=== PATIENT | female | born 1980 | race Caucasian/White ===

== ENCOUNTER 2018-05-11 08:02 | Observation (INO) | payer BC ==
[2018-05-11] MEDS ORDERED: FENTANYL CITR 100 MCG/2 ML ONE (08:25)
[2018-05-11] MEDS ORDERED: ONDANSETRON 4 MG/2 ML VIAL ONE (08:26)
[2018-05-11] MEDS ORDERED: KETOROLAC 30 MG/ML INJ ONE (08:26)
[2018-05-11 08:33] LABS: Absolute Lymphocytes (CBC) 1.4 K/uL (0.7-4.9); Absolute Monocytes 0.8 K/uL (0.1-1.3); Absolute Neutrophil 8.3 K/uL (1.8-8.0); Basophils % 0.5 % (0-1.3); Eosinophils % 1.1 % (0-4.4); Hematocrit 41.1 % (36.0-45.0); Lymphocytes % 13.4 % (15.3-44.8); MPV 7.9 fL (7.6-11.3); Monocytes % 7.5 % (3.3-12.3); RBC Red Blood Cell Count 4.62 M/uL (3.86-4.86)
--- NOTE | 2018-05-11 09:35 | RAD REPORT ---
EXAM DESCRIPTION: CT - Stone Protocol - 05/11/2018 9:19 am CLINICAL HISTORY: Abdominal pain, back pain, recent UTI diagnosis COMPARISON: None. TECHNIQUE: Axial 5 mm thick images were obtained without oral or IV contrast. The [id number] span s the entirety of the system including uppermost abdomen and lung bases. All CT scans are performed using dose optimization technique as appropriate and may include automated exposure control or mA/KV adjustment according to patient size. FINDINGS: Minimal dilatation of the right collecting system is noted. However, there is wall thicken ing and stranding along the course of the right ureter. Right kidney appears edematous relative to th e left. There is a 3 centimeter round low-density mass upper pole right kidney believed to be an inci dental cyst. No obstructing or nonobstructing calculi. No suspicious renal masses. Isodense masses an d pyelonephritis are not excluded on a stone protocol CT scan. Urinary bladder is contracted limiting assessment. No significant adrenal finding. No acute uterine finding seen on noncontrast imaging. Fa llopian tube occlusive device in place. No suspicious ovarian finding. Imaged portions of the liver, spleen and pancreas show no suspicious findings on non-contrast imaging . No gallbladder or biliary tree abnormality identified. No suspicious bowel findings. No hernia, mass or bulky lymphadenopathy noted. No free air, free fluid or inflammatory stranding. No significant bony abnormality. IMPRESSION: Mild dilatation of the right collecting system with wall thickening and stranding along the course of the ureter. Right kidney appears edematous. Right-sided pyelonephritis and ureteritis most likely. Cystitis of the bladder cannot be accurately a ssessed given the contracted state. No uterine or ovarian suspicious finding. Tubal occlusive device in place. 3 centimeter cyst upper pole right kidney identified. Abscess or aggressive mass not suspected. Isodense masses and pyelonephritis are not excluded on stone protocol technique.
[2018-05-11 09:37] LABS: Albumin 4.3 g/dL (3.4-5.0); Bilirubin Direct 0.3 mg/dL (0-0.2); Bilirubin Total 0.9 mg/dL (0.2-1.0); Potassium 3.9 mmol/L (3.5-5.1); Protein, Total 8.6 g/dL (6.4-8.2)
[2018-05-11] MEDS ORDERED: CEFTRIAXONE/SWI 1gm 1 GM/10 ML SYR ONE (10:06)
--- NOTE | 2018-05-11 10:39 | ER ---
Nurse's Notes [facility] Name: Marysol Mccurdy Age: 37 yrs Sex: Female : 1980 Arrival Date: 05/11/2018 Time: 08:03 Bed 20 Private MD: Diagnosis: Acute tubulo-interstitial nephritis;Ureteritis Presentation: 05/11 08:11 Presenting complaint: Patient states: I was diagnosed with a UTI Tuesday and started on tw2 bactrim but my lower right side of my back hurts and it goes through my stomach. Transition of care: patient was not received from another setting of care. Onset of symptoms was May 11, 2018. Risk Assessment: Do you want to hurt yourself or someone else? Patient reports no desire to harm self or others. Initial Sepsis Screen: Does the patient meet any 2 criteria? HR > 90 bpm. No. Patient's initial sepsis screen is negative. Does the patient have a suspected source of infection? No. Patient's initial sepsis screen is negative. Care prior to arrival: None. 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 - Social history:: Smoking status: Patient/guardian denies using tobacco. - Ebola Screening: : Patient denies travel to an Ebola-affected area in the 21 days before illness onset. Screenin:39 Abuse screen: Denies threats or abuse. Nutritional screening: No deficits noted. tw2 Tuberculosis screening: No symptoms or risk factors identified. Fall Risk None identified. Assessment: 08:15 General: Appears uncomfortable, slender, well groomed, Behavior is calm, cooperative, tw2 appropriate for age. Pain: Complains of pain in anterior aspect of right lateral abdomen and posterior aspect of right lateral abdomen and right flank and right mid back. Neuro: Level of Consciousness is awake, alert, obeys commands, Oriented to person, place, time, situation. Cardiovascular: Denies chest pain, shortness of breath, Heart tones S1 S2 Patient's skin is warm and dry. Respiratory: Airway is patent Respiratory effort is even, unlabored, Respiratory pattern is regular, symmetrical, Breath sounds are clear bilaterally. GI: Abdomen is flat, Bowel sounds present X 4 quads. Abdomen is tender to palpation in right lower quadrant Reports lower abdominal pain, upper abdominal pain, nausea, recently diagnosed with UTI and on Bactrim, pt also reports recently taking AZO OTC Patient currently denies constipation, diarrhea. : Reports urinary frequency, recently diagnosed uti. EENT: No signs and/or symptoms were reported regarding the EENT system. Derm: No signs and/or symptoms reported regarding the dermatologic system. Musculoskeletal: Circulation, motion, and sensation intact. Range of motion: intact in all extremities. 09:07 Reassessment: Patient appears in no apparent distress at this time. Patient and/or tw2 family updated on plan of care and expected duration. Pain level reassessed. Patient is alert, oriented x 3, equal unlabored respirations, skin warm/dry/pink. Patient states feeling better. Patient states symptoms have improved. 10:04 General: Appears in no apparent distress. comfortable, Behavior is calm, cooperative, aj appropriate for age. Pain: Complains of pain in right mid back. Neuro: Level of Consciousness is awake, alert, obeys commands, Oriented to person, place, time, situation, Appropriate for age. Respiratory: Airway is patent Respiratory effort is even, unlabored, Respiratory pattern is regular, symmetrical. GI: Abdomen is flat, non-distended. : Reports pain in right in lower back. Derm: Skin is intact, is healthy with good turgor, Skin is pink, warm \T\ dry. normal. Vital Signs: 08:12 BP 129 / 95; Pulse 107; Resp 19; Temp 98.2(O); Pulse Ox 100% on R/A; Pain 10/10; tw2 09:05 BP 103 / 79; Pulse 83; Resp 17; Pulse Ox 97% on R/A; Pain 7/10; tw2 09:55 Weight 61.23 kg; Height 5 ft. 1 in. (154.94 cm); aj 10:02 BP 105 / 72; Pulse 86; Resp 18; Pulse Ox 99% on R/A; aj 11:50 BP 116 / 70; Pulse 76; Resp 18; Pulse Ox 99% on R/A; aj 09:55 Body Mass Index 25.51 (61.23 kg, 154.94 cm) ED Course: 08:03 Patient arrived in ED. rg4 08:06 Giacomo Garvey PA is PHCP. jr8 08:06 Billy Aragon MD is Attending Physician. jr8 08:10 Arm band placed on. tw2 08:11 Nayely De León RN is Primary Nurse. tw2 08:12 Triage completed. tw2 08:12 Bed in low position. Call light in reach. Pulse ox on. NIBP on. Warm blanket given. tw2 08:18 Radiology exam delayed due to test not completed at this time. sj 08:20 Attending Physician role handed off by Billy Aragon MD jr8 08:20 Gui Almonte MD is Attending Physician. jr8 08:20 Inserted saline lock: 22 gauge in right antecubital area, using aseptic technique. tw2 Blood collected. 08:52 Radiology exam delayed due to test not completed at this time. sj 09:[address] sj 09:17 CT completed. Patient tolerated procedure well. Patient moved back from CT. vr 09:21 CT Stone Protocol In Process Unspecified. EDMS 09:55 Report given to GALLO Gregg. tw2 10:04 Marysol Guajardo RN is Primary Nurse. aj 10:37 Uli Heart MD is Hospitalizing Provider. jr8 11:56 Report given to Zhou HOLDER. aj 11:56 No provider procedures requiring assistance completed. Patient admitted, IV remains in aj place. intact. Administered Medications: 08:22 Drug: Zofran 4 mg Route: IVP; Site: right antecubital; tw2 10:01 Follow up: Response: No adverse reaction tw2 08:25 Drug: TORadol 30 mg Route: IVP; Site: right antecubital; tw2 10:01 Follow up: Response: No adverse reaction tw2 08:30 Drug: fentaNYL (PF) 50 mcg Route: IVP; Site: right antecubital; tw2 09:00 Follow up: Response: No adverse reaction; Pain is decreased tw2 09:40 Drug: fentaNYL (PF) 50 mcg Route: IVP; Site: right antecubital; tw2 10:01 Follow up: Response: No adverse reaction; Pain is decreased tw2 09:59 Drug: Rocephin 1 grams Route: IV; Rate: calculated rate; Site: right antecubital; aj 10:02 Follow up: Response: No adverse reaction; IV Status: Completed infusion; IV Intake: 10mlaj 12:01 Drug: NS 0.9% 1000 ml Route: IV; Rate: 125 ml/hr; Site: right antecubital; aj 12:02 Follow up: IV Status: Infusion continued upon admission aj Intake: 10:02 IV: 10ml; Total: 10ml. aj Outcome: 10:38 Decision to Hospitalize by Provider. eric 11:56 Admitted to Med/surg accompanied by tech, via wheelchair, room 214, with chart. aj 11:56 Condition: good 11:56 Instructed on the need for admit. 12:09 Patient left the ED. aj Signatures: Dispatcher [employer] EDMarysol Ward, RN RN my Burnett, Crissy Baron Josh, PA PA jr8 Wise, Tara, RN RN tw2 Flora Velez rg4 Corrections: (The following items were deleted from the chart) 10:05 10:02 Reassessment: Patient appears in no apparent distress at this time. No changes aj from previously documented assessment. Patient and/or family updated on plan of care and expected duration. Pain level reassessed. Patient is alert, oriented x 3, equal unlabored respirations, skin warm/dry/pink. aj
--- NOTE | 2018-05-11 10:40 | EDPHYS ---
Physician Documentation [facility] Name: Marysol Mccurdy Age: 37 yrs Sex: Female : 1980 Arrival Date: 05/11/2018 Time: 08:03 Bed 20 Private MD: ED Physician Gui Almonte HPI: 05/11 08:13 This 37 yrs old Female presents to ER via Ambulatory with complaints of Back jr8 Pain. 08:13 The symptoms are located in the right mid back. Onset: The symptoms/episode jr8 began/occurred acutely, 3 day(s) ago. The pain radiates. Associated signs and symptoms: The patient has no apparent associated signs or symptoms. Modifying factors: The patient symptoms are alleviated by nothing, the patient symptoms are aggravated by movement. Severity of symptoms: At their worst the symptoms were moderate, in the emergency department the symptoms are unchanged. The patient has not experienced similar symptoms in the past. The patient has been recently seen by a physician:. Patient seen by PCP on Tuesday for back pain on right side. Denies trauma or strain to back that she can think of. Urine was ran at that time and showed to have blood and WBC in urine. Was put on Bactrim. Came to ED today for worsening of pain . 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 - Social history:: Smoking status: Patient/guardian denies using tobacco. - Ebola Screening: : Patient denies travel to an Ebola-affected area in the 21 days before illness onset. ROS: 08:13 Eyes: Negative for injury, pain, redness, and discharge, ENT: Negative for injury, jr8 pain, and discharge, Neck: Negative for injury, pain, and swelling, Cardiovascular: Negative for chest pain, palpitations, and edema, Respiratory: Negative for shortness of breath, cough, wheezing, and pleuritic chest pain, Abdomen/GI: Negative for abdominal pain, nausea, vomiting, diarrhea, and constipation, MS/Extremity: Negative for injury and deformity, Skin: Negative for injury, rash, and discoloration, Neuro: Negative for headache, weakness, numbness, tingling, and seizure. 08:13 Back: Positive for pain at rest, pain with movement, flank pain, of the right flank and right mid back. Exam: 08:13 Eyes: Pupils equal round and reactive to light, extra-ocular motions intact. Lids and jr8 lashes normal. Conjunctiva and sclera are non-icteric and not injected. Cornea within normal limits. Periorbital areas with no swelling, redness, or edema. ENT: Nares patent. No nasal discharge, no septal abnormalities noted. Tympanic membranes are normal and external auditory canals are clear. Oropharynx with no redness, swelling, or masses, exudates, or evidence of obstruction, uvula midline. Mucous membranes moist. Neck: Trachea midline, no thyromegaly or masses palpated, and no cervical lymphadenopathy. Supple, full range of motion without nuchal rigidity, or vertebral point tenderness. No Meningismus. Cardiovascular: Regular rate and rhythm with a normal S1 and S2. No gallops, murmurs, or rubs. Normal PMI, no JVD. No pulse deficits. Respiratory: Lungs have equal breath sounds bilaterally, clear to auscultation and percussion. No rales, rhonchi or wheezes noted. No increased work of breathing, no retractions or nasal flaring. Skin: Warm, dry with normal turgor. Normal color with no rashes, no lesions, and no evidence of cellulitis. MS/ Extremity: Pulses equal, no cyanosis. Neurovascular intact. Full, normal range of motion. Neuro: Awake and alert, GCS 15, oriented to person, place, time, and situation. Cranial nerves II-XII grossly intact. Motor strength 5/5 in all extremities. Sensory grossly intact. Cerebellar exam normal. Normal gait. 08:13 Abdomen/GI: Inspection: abdomen appears normal, Bowel sounds: active, all quadrants, Palpation: soft, in all quadrants, mild abdominal tenderness, in the posterior aspect of right lateral abdomen and anterior aspect of right lateral abdomen, mass, is not appreciated, rebound tenderness, is not appreciated, voluntary guarding, is not appreciated, involuntary guarding, is not appreciated, no appreciated organomegaly, Indicators: McBurney's point is not tender, Parks's sign is negative, Rovsing's sign is negative, Liver: tenderness, is not appreciated. 08:13 Back: pain, that is moderate, of the right flank and right mid back, ROM is normal, normal spinal alignment noted, CVA tenderness, that is moderate, is noted on the right, muscle spasm, is not present. Vital Signs: 08:12 BP 129 / 95; Pulse 107; Resp 19; Temp 98.2(O); Pulse Ox 100% on R/A; Pain 10/10; tw2 09:05 BP 103 / 79; Pulse 83; Resp 17; Pulse Ox 97% on R/A; Pain 7/10; tw2 09:55 Weight 61.23 kg; Height 5 ft. 1 in. (154.94 cm); aj 10:02 BP 105 / 72; Pulse 86; Resp 18; Pulse Ox 99% on R/A; aj 11:50 BP 116 / 70; Pulse 76; Resp 18; Pulse Ox 99% on R/A; aj 09:55 Body Mass Index 25.51 (61.23 kg, 154.94 cm) aj MDM: 08:06 Patient medically screened. jr8 10:34 Data reviewed: vital signs, nurses notes, lab test result(s), radiologic studies, CT jr8 scan. Data interpreted: Pulse oximetry: on room air is 99 %. Interpretation: normal. Counseling: I had a detailed discussion with the patient and/or guardian regarding: the historical points, exam findings, and any diagnostic results supporting the discharge/admit diagnosis, lab results, radiology results, the need for further work-up and treatment in the hospital. 05/11 08:12 Order name: Basic Metabolic Panel; Complete Time: 09:48 05/11 08:12 Order name: CBC with Diff; Complete Time: 08:39 05/11 08:12 Order name: Creatinine for Radiology; Complete Time: 09:13 05/11 08:12 Order name: Hepatic Function; Complete Time: :48 05/11 08:12 Order name: Lipase; Complete Time: 48 05/11 08:40 Order name: Urine Dipstick--Ancillary (enter results); Complete Time: 11:36 05/11 08:12 Order name: CT Stone Protocol; Complete Time: 09:49 05/11 08:40 Order name: Urine --Ancillary (enter results); Complete Time: 11:36 eb 05/11 10:35 Order name: Urine Culture [facility] 05/11 08:12 Order name: IV Saline Lock; Complete Time: 08:[address] [facility] 05/11 08:12 Order name: Labs collected and sent; Complete Time: 08:41 05/11 08:12 Order name: Urine Test (obtain specimen); Complete Time: 08:[address] [facility] 05/11 08:12 Order name: Urine Dipstick-Ancillary (obtain specimen); Complete Time: 08:[address] [facility] Administered Medications: 08:22 Drug: Zofran 4 mg Route: IVP; Site: right antecubital; tw2 10:01 Follow up: Response: No adverse reaction tw2 08:25 Drug: TORadol 30 mg Route: IVP; Site: right antecubital; tw2 10:01 Follow up: Response: No adverse reaction tw2 08:30 Drug: fentaNYL (PF) 50 mcg Route: IVP; Site: right antecubital; tw2 09:00 Follow up: Response: No adverse reaction; Pain is decreased tw2 09:40 Drug: fentaNYL (PF) 50 mcg Route: IVP; Site: right antecubital; tw2 10:01 Follow up: Response: No adverse reaction; Pain is decreased tw2 09:59 Drug: Rocephin 1 grams Route: IV; Rate: calculated rate; Site: right antecubital; aj 10:02 Follow up: Response: No adverse reaction; IV Status: Completed infusion; IV Intake: 10mlaj 12:01 Drug: NS 0.9% 1000 ml Route: IV; Rate: 125 ml/hr; Site: right antecubital; aj 12:02 Follow up: IV Status: Infusion continued upon admission aj Disposition: 12:19 Co-signature as Attending Physician, Billy Aragon MD I agree with the assessment and glo plan of care. Disposition: 05/11/18 10:38 Hospitalization ordered by Uli Heart for Observation. Preliminary diagnosis are Acute tubulo-interstitial nephritis, Ureteritis. - Bed requested for Telemetry/MedSurg (observation). - Status is Observation. aj - Condition is Stable. - Problem is new. - Symptoms have improved. UTI on Admission? Yes Signatures: Dispatcher [employer] SEVERINO Guajardo Amanda, RN Billy York MD MD cha Williams, Irene, RN Giacomo Rubio PA PA jr8 Nayely De León RN RN tw2 Trang Rothman Corrections: (The following items were deleted from the chart) 11:49 10:38 Hospitalization Ordered by Uli Heart MD for Observation. Preliminary diagnosis eb is Acute tubulo-interstitial nephritis; Ureteritis. Bed requested for Telemetry/MedSurg (observation). Status is Observation. Condition is Stable. Problem is new. Symptoms have improved. UTI on Admission? Yes. jr8 12:09 11:49 05/11/2018 10:38 Hospitalization Ordered by Uli Heart MD for Observation. aj Preliminary diagnosis is Acute tubulo-interstitial nephritis; Ureteritis. Bed requested for Telemetry/MedSurg (observation). Status is Observation. Condition is Stable. Problem is new. Symptoms have improved. UTI on Admission? Yes. adrian
[2018-05-11 11:33] LABS: Urine Blood TRACE (NEG); Urine Glucose NEGATIVE (NEG); Urine Protein 2+ (NEG); Urine Specific Gravity 1.025 (1.005-1.030); Urine pH 5.5 (5.0-7.0)
[2018-05-11] MEDS ORDERED: NA CHLORIDE 0.9% 1,000 ML ONE (12:10)
[2018-05-11] MEDS ORDERED: ONDANSETRON 4 MG/2 ML VIAL IV PRN (12:29)
[2018-05-11] MEDS ORDERED: ACETAMINOPHEN 500 MG TAB PO PRN (12:29)
[2018-05-11] MEDS ORDERED: TRAMADOL HCL 50 MG TAB PO PRN (12:29)
[2018-05-11] MEDS: NA CHLORIDE 0.9% 1,000 ML IV SCH ×2 (13:29→21:14)
[2018-05-11] MEDS ORDERED: INFLUENZA VACCINE (for 3y+) 0.5 ML DOSE IMVAC ONE (14:00)
--- NOTE | 2018-05-12 00:14 | HP ---
Date of Admission: 05/11/2018 Chief Complaint: Right flank pain. History Of Present Illness: The patient is a 37-year-old female with no past medical history, who wa s in her usual state of health until a week prior to admission when the patient started having some r ight-sided flank pain and subsequent burning on urination along with some urinary frequency. The pat ient initially felt that this was perhaps musculoskeletal pain, started taking some [id number] cranberry pills to help with UTI, which did not significantly improve her symptoms. The patient went to go see her PCP on Tuesday and was prescribed Bactrim and has been taking Bactrim for the past cou ple of days. However, her pain became significantly worse on the right flank. The pain was nonradia ting, sharp. No alleviating factors. The patient also developed some nausea, chills, and subjective fever. The patient's symptoms are constant, moderate, and progressively worsening. Therefore, she came into the ER for further evaluation. Upon arrival, her vital signs showed some tachycardia. She was afebrile. Her workup revealed normal WBC count. Her UA was positive. Urine test was negative. CT scan of the abdomen was done, which showed some dilatation of the right collecting sys tem with wall thickening and stranding with the right kidney appearing edematous with right-sided cheri lonephritis and ureteritis most likely. No stones were seen. The patient was given IV fluids, IV pa in medications, and referred for admission. When seen in the ER, she was awake, alert, and oriented x3, stating that the pain medication made her somewhat somnolent. Past Medical History: None. Past Surgical History: None. The patient does have intrauterine contraceptive device. Allergies: TO CODEINE, WHICH MAKES HER CONFUSED AND CLINDAMYCIN, WHICH CAUSES ITCHING. Medications: The patient takes [id number] Tylenol, vitamins, and ibuprofen. Currently was ina ing Bactrim since Tuesday. 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 Family History: Father of [place] at age of 59. Grandfather had colon cancer and esophageal cancer. Aunt has ovarian cancer. Review of Systems: An 11-point system reviewed, negative except as per HPI. Physical Examination: Vital Signs: Temperature 98.2, heart rate 107, blood pressure 129/95, respirations 19, and O2 100% o n room air. General: Awake, alert, and oriented x3, in some mild distress due to pain. Ill-appearing female. HEENT: Normocephalic, atraumatic. PERRLA. EOMI. Dry mucous membranes. Oropharynx is clear. Norm al dentition. Conjunctivae are anicteric. Neck: Supple. No JVD. Trachea midline. CV: S1, S2. Sinus tachycardia. No murmurs. Peripheral pulses present. Respiratory: Moving air well bilaterally. No wheezing or stridor. Gastrointestinal: Abdomen is soft, nontender, and nondistended. Positive bowel sounds. No guarding or rigidity. The patient does have right-sided flank tenderness. Extremities: No clubbing, cyanosis, or edema. No calf tenderness. Neuro: Cranial nerves 2-12 intact grossly. No focal neurological deficit. Speech is normal. A 5/5 muscle strength, bilateral upper and lower extremities, major muscle groups. Skin: No rashes. Normal skin turgor. Laboratory Data: Sodium 138, potassium 3.9, chloride 107, CO2 24, BUN 15, creatinine 0.86, glucose 9 0, calcium 9.5, and lipase 93. WBC 10.7, H and H 14.2 and 41.1, platelets 312, and neutrophils 77%. UA; 2+ ketones, trace blood, negative nitrite, 3+ leukocyte esterase, 2+ protein, and negative for u rine . CT scan of the abdomen and pelvis shows mild dilatation of the right collecting syst em with wall thickening and stranding along the course of the ureter. Right kidney appears edematous . Right kidney pyelonephritis and ureteritis most likely. No uterine or ovarian suspicious finding. Tubal occlusive device in place. A 3-cm cyst, upper pole of right kidney, identified. Isodense ma sses and pyelonephritis are not excluded on stone protocol technique. Assessment And Plan: A 37-year-old female with: 1.Acute pyelonephritis. The patient is tachycardic. Subjective fevers, flank tenderness. CT also shows edematous kidney along with ureteritis. We will start on IV antibiotics and IV fluids, and p.o . pain medications. Avoid IV analgesia due to the patient's allergies. 2.Tachycardia, likely secondary to acute reactive reaction from infection. No signs of sepsis. 3.A 3 cm right upper pole kidney cyst. Thought appeared to be an abscess or aggressive mass per Rad iology reading. 4.GI and DVT prophylaxis with PPI and SCDs. Admit the patient to Med-Surg, place as observation. Follow up on urine culture. VIVIENNE Voice ID: [id number]
[2018-05-12 04:55] LABS: Absolute Lymphocytes (CBC) 1.7 K/uL (0.7-4.9); Absolute Monocytes 0.6 K/uL (0.1-1.3); Basophils % 0.8 % (0-1.3); Eosinophils % 2.7 % (0-4.4); Hematocrit 34.5 % (36.0-45.0); Lymphocytes % 31.3 % (15.3-44.8); Monocytes % 10.6 % (3.3-12.3)
[2018-05-12] MEDS: NA CHLORIDE 0.9% 1,000 ML IV SCH ×2 (04:56→12:29)
[2018-05-12 05:00] LABS: BUN Blood Urea Nitrogen 15 mg/dL (7-18); Bicarbonate 25 mmol/L (21-32); Glucose Level 97 mg/dL (74-106); Potassium 4.5 mmol/L (3.5-5.1); Sodium Level 142 mmol/L (136-145)
[2018-05-12] MEDS ORDERED: CEFTRIAXONE/SWI 1gm 1 GM/10 ML SYR IV SCH (09:00)
[2018-05-12] MEDS ORDERED: INFLUENZA VACCINE (for 3y+) 0.5 ML DOSE IMVAC ONE (10:00)
--- NOTE | 2018-05-13 02:55 | DS ---
Date of Discharge: 05/12/2018 Discharge Diagnoses: 1.Acute pyelonephritis. 2.A 3-cm right upper pole kidney cyst. 3.Sinus tachycardia. Hospital Course: The patient is a 37-year-old female with no significant past medical history, comes in with UTI and right-sided flank pain, admitted for pyelonephritis. The patient was started on IV fluids and IV antibiotics. The patient did fail outpatient therapy with Bactrim. She was on Bactrim for over [address] scan of the abdomen did not show any stones. Did show an incid ental 3-cm cyst in the right upper pole of the kidney. Also showed some dilatation of the right bhupendra ecting system with wall thickening and stranding along the course of the ureter. Right kidney appear s edematous. The patient improved with treatment. Her WBC count remained normal. Due to her previo us antibiotic use, urine culture did not show any growth. Her flank pain resolved. The patient was then able to ambulate. Her symptoms improved. She did complain of some nausea; however, was able to tolerate her diet. The patient was not cleared for discharge and was sent home in a stable [facility]. Medications: As per medication reconciliation list. Followup: Follow up with PCP in 2 to 3 days. Return to ER for worsening condition. Diet: Regular. Activity: As tolerated. Physical Examination: General: Awake, alert, oriented x3. No acute distress. CV: S1, S2. No murmurs. Regular rate and rhythm. Respiratory: Clear to auscultation bilaterally. No wheezing or stridor. Gastrointestinal: Abdomen is soft, nontender, nondistended. Positive bowel sounds. No guarding or rigidity. Extremities: No clubbing, cyanosis, or edema. Neurologic: Nonfocal. Musculoskeletal: No flank pain on the right or left. SA/MODL Voice ID: [id number] Report ID: [id number]
== END 2018-05-12 13:50 | disposition home or self-care (01) ==
LOC: ER 08:02 → ERHOLD 10:52 → 2ND 11:57
PROVIDERS: ADMIT Family Medicine; ATTEND Family Medicine
DX: N10 Acute pyelonephritis (principal); N28.1 Cyst of kidney, acquired; R00.0 Tachycardia, unspecified; Z23 Encounter for immunization
CPT/HCPCS: 36415; 74176; 76377; 80048; 80076; 81003; 81025; 83690; 85025; 87086; 87088; 94760; 96374; 96375; 99285; G0008; G0378; J0696; J2405; J3010; J7030; Q2035